=== PATIENT | female | born 1990 | race Caucasian/White ===

== ENCOUNTER 2019-11-10 13:19 | Outpatient (CLI) | payer SELFPAY ==
--- NOTE | 2019-11-10 13:32 | XR_ITS ---
WS: [id number] CHEST 2 VIEWS HISTORY: FEVER, symptoms, WHEEZING, COUGH COMPARISON: 01/23/2015 Lungs: Clear with no abnormality. No pleural effusion or pneumothorax. Cardiac size: Normal. Mediastinum/Aorta: Normal mediastinum. Bones: Normal. XR/XR chest 2V* [id number] IMPRESSION: Normal chest.
== END 2019-11-10 13:20 | disposition home or self-care (01) ==
LOC: RADWPI 13:22
PROVIDERS: Family Provider Family Medicine; PCP Nurse Practitioner Family; Visit Provider Nurse Practitioner Family
DX: R50.9 Fever, unspecified (principal); R06.2 Wheezing; R05 Cough
CPT/HCPCS: 71046

== ENCOUNTER 2021-01-15 12:00 | Inpatient (IN) | payer MEDICAID, SELFPAY ==
[2021-01-15] VITALS (27 sets, daily range): BP systolic 104–128; BP diastolic 42–73; PULSE 66–133; RESP 14–18; TEMP 36.5–36.7; O2SAT 94–100; BMI 21.9
--- NOTE | 2021-01-15 12:07 | USR_ITS ---
PROCEDURE INFORMATION: Exam: US , Limited Exam date and time: 01/15/2021 12:30 PM Age: 30 years old Clinical indication: complicated by abdominal or pelvic pain; Generalized abdominal pain; Third trimester; Gestational age or lmp: Lmp 05-18-2020; ; Additional info: Dating TECHNIQUE: Imaging protocol: Real-time ultrasound of the maternal uterus with image documentation. Exam focused on the clinical indication. COMPARISON: US OB >14 Weeks [id number] 12/29/2018 11:10 AM FINDINGS: Gestation: Single live intrauterine presentation: Breech presentation. heart rate: 129 bpm Placenta: Placenta is anterior and left lateral. No previa. Amniotic fluid: Amniotic fluid is grossly normal. BIOMETRY: Gestational age (AUA): 34 week 1 day Estimated due date (AUA): 02/25/2021 Estimated weight: 2111 g Estimated weight percentile: 31 Biparietal diameter: 8.61 cm 34 week 5 day Head circumference: 32.21 cm 36 week 3 day Abdominal circumference: 28.03 cm 32 weeks 1 day Femur length: 6.43 cm 33 week 1 day US/US OB >= 14 weeks fetus [id number] IMPRESSION: Single live intrauterine approximately 34 weeks 1 day gestational age.
[2021-01-15] MEDS: terbutaline 1 mg/mL INJ 0.25 MG SUBCUT (12:29)
[2021-01-15 12:33] LABS: Basophils % 0.2 %; Eosinophils # 0.1 10^3/uL (0.0-0.8); Eosinophils % 0.5 %; Hematocrit 39.6 % (37.0-47.0); Hemoglobin 13.5 g/dL (11.5-15.3); Lymphocytes # 1.6 10^3/uL (0.8-4.8); Lymphocytes % 12.3 %; Mean Corpuscular HGB Conc 34.1 g/dL (30.0-36.0); Mean Corpuscular Hemoglobin 31.4 pg (28.0-34.0); Mean Corpuscular Volume 92.1 fL (81-99); Mean Platelet Volume 10.8 fL (7.4-10.4); Monocytes # 0.8 10^3/uL (0.2-0.9); Neutrophils # 10.22 10^3/uL (1.8-7.7); Neutrophils % 80.4 %; Nucleated Red Blood Cells % 0 %; Platelet Count 162 10^3/cmm (130-400); Red Cell Distribution Width 12.5 % (12.1-15.1); White Blood Count 12.7 10^3/uL (4.0-10.0)
--- NOTE | 2021-01-15 12:42 | P.HP_ITS ---
Providers/Chief Complaint Admitting Physician: Isaac Louis MD Primary Care Provider: Sigrid Ontiveros Chief Complaint: Abdominal pain History of Present Illness Breann You is a 30 year old female who is a 4 para 1 at approximately 34 weeks gestation by dates. This is not been verified by ultrasound. She began care with this physician in approximately 31 weeks gestation by dates. Ultrasound verification has not been done as patient has not been able to verify that she is gotten Medicaid. We have also not done any labs on her. This physician has seen her 2x1 at 31 weeks and 1 at 32 weeks and 6 days. She denies any major problems through her but began having abdominal pain and contractions beginning this morning. She arrived [facility] OB department and was roxanne and found to be approximately 3 cm dilated. She is roxanne pretty regularly and is uncomfortable with them. Evaluation by the nurses found her to be 3 cm dilated with probably an extremity as a presenting part. A quick ultrasound demonstrated the was indeed breech in position. She is now been rechecked by Dr. Mayorga who found her to be approximately 4 segmenters dilated. Therefore, due to malpresentation she is going to be taken to section. There are no other risk factors except she is a smoker. Review of Systems Narrative: This patient denies any nausea vomiting diarrhea or constipation. She is afebrile. She began having strong contractions earlier this morning and that brought her to the hospital for evaluation. She denies any other significant problems or concerns. PFSH Acute Female Reproductive History: : 4 Vitals/I&O/Wt Last Vital Signs Temp 98.1 F 01/15/21 11:53 Pulse 88 01/15/21 11:54 Resp 18 01/15/21 12:08 BP 122/73 01/15/21 11:54 Weight last 48 hrs Weight 63.503 kg Physical Exam Const: COMMON NORMALS: healthy appearing, alert and well nourished (She is thin.); apparent distress (She is uncomfortable with contractions.) HENMT: COMMON NORMALS: moist oral mucous membranes Resp: COMMON NORMALS: normal respiratory effort, No retractions, No use of accessory muscles and clear to auscultation bilaterally Cardio: COMMON NORMALS: regular rhythm and No murmurs present (Cardio) GI: COMMON NORMALS: Normal to inspection, nondistended, normoactive bowel sounds present (She has a gravid uterus.) and Soft to palpation Extremity: COMMON NORMALS: normal to inspection, full ROM, no calf tenderness and no pedal edema Neuro: COMMON NORMALS: moves all extremities, no focal motor deficits and no sensory deficits noted Psych: COMMON NORMALS: mental status grossly normal, Normal thought process present, cooperative and normal affect Data : 01/15/21 12:15 A&P Assessment and plan (1) labor in third trimester: Patient is unsure as to how far along she is. She has had minimal care and begin care with this physician on December 21 with possible 31 weeks gestation at that time. She is presently in labor. We are getting the labs and ultrasound as quickly as we can as she is going to require section secondary to breech position. Status: Acute (2) Breech presentation of fetus: Patient is in breech position and in active labor as she is making cervical change. Dr. Mayorga has been consulted and will proceed with section. Status: Acute Attestations Medical Necessity Statement*: This patient is an active labor and requires admission to the hospital with section secondary to malpresentation of the . Time Spent in Patient Care: 16 - 35 minutes Coding Level of Care Code Acute Tire Cord Weaver for Chg Fwd Diagnoses labor in third trimester O60.03 Breech presentation of fetus O32.1XX0
[2021-01-15 12:43] LABS: Amphetamines Screen Urine Negative (Negative); Barbiturates Screen Urine Negative (Negative); Benzodiazepines Screen Urine Negative (Negative); Cocaine Screen Urine Negative (Negative); Opiate Screen Urine Negative (Negative); PCP Screen Urine Negative (Negative); THC Screen Urine Positive (Negative)
[2021-01-15] MEDS: famotidine 20 mg/2 mL INJ IVP (12:43)
[2021-01-15] MEDS: metoclopramide 5 mg/mL SDV 2 mL 10 MG IVP (12:43)
[2021-01-15] MEDS: citric acid-sodium citrate 30 mL UDC PO (12:44)
--- NOTE | 2021-01-15 13:00 | ANES.PREANE2 ---
Pre-Anesthetic Assessment Pre-Anesthetic Assessment: Height/Weight: Height 1.7 m Weight 63.503 kg Temp Pulse Resp BP 98.1 F 108 H 18 118/67 01/15/21 11:53 01/15/21 12:57 01/15/21 12:08 01/15/21 12:57 Preop Diagnosis: breech Proposed Procedure: Familial anesthetic complications: none Was Beta Belia taken within 24 hours: N/A Was Clonidine taken within 24 hours: N/A Social: Social History: Tobacco Packs per day: 0.5 Pack years: 15 Exam: Pre-Anes Outpt Exam: alert, oriented x 3, clear to auscultation bilaterally and regular rate & rhythm Airway: Submandibular: WNL Cervical ROM: WNL MP: 2 Dentition: Full Pulmonary: Pulmonary: None reported CV/HEM: CV/HEM: None reported : : None reported Hepatic: Hepatic: None reported GI: GI: GERD (OTC controls it) Metabolic: Metabolic: None reported Musc/skel: Musc/skel: None reported Neuropsych: Neuropsych: None reported Anesthetic Plan: ASA status: 2 Anesthesia: General and Regional (specify below) Risk of > 500 ml blood loss (7ml/kg in children): No PFSH Anesthesia Female Reproductive History: : 4 Data Anesthesia CBC & Chem 7: 01/15/21 12:15 Other Labs: Laboratory Results - last 48 hr 01/15/21 01/15/21 11:45 12:15 WBC 12.7 H RBC 4.30 Hgb 13.5 Hct 39.6 MCV 92.1 MCH 31.4 MCHC 34.1 RDW 12.5 Plt Count 162 MPV 10.8 H Neut % (Auto) 80.4 Lymph % (Auto) 12.3 [place] % (Auto) 6.0 Eos % (Auto) 0.5 Baso % (Auto) 0.2 Neut # (Auto) 10.22 H Lymph # (Auto) 1.6 [place] # (Auto) 0.8 Eos # (Auto) 0.1 Baso # (Auto) 0.0 Nucleated RBC % (auto) 0 Nucleated RBCs # 0.0 Urine Opiates Screen Negative Ur Barbiturates Screen Negative Ur Phencyclidine Scrn Negative Ur Amphetamines Screen Negative U Benzodiazepines Scrn Negative Urine Cocaine Screen Negative U Marijuana (THC) Screen Positive H Cardiac Studies: No Data to Display
[2021-01-15 13:04] LABS: Hepatitis B Surface Antigen Non-Reactive (Nonreactive)
[2021-01-15 13:13] LABS: Rapid Plasma Reagin Syphilis Nonreactive (Nonreactive)
[2021-01-15 13:14] LABS: HIV 1 & 2 Antibody Non-Reactive (Non-Reactiv); HIV 1 & 2 Antigen Non-Reactive (Non-Reactiv)
--- NOTE | 2021-01-15 14:00 | P.OP_ITS ---
Operative Report Date of procedure: January 15, 2021 Pre-op Diagnosis: 2, EGA of 34 weeks, breech Post-op diagnosis: same (Sam breech) Procedure Done: Lower transverse section Specimens removed/disposition: 1. Female with a weight of 4 pounds 12 ounces and Apgars of 8 and 9 Pathology: none sent Surgeon: Pako Mayorga Pediatric Social Worker: Isaac Louis Anesthesia: Epidural (Spinal) Estimated blood loss (mL): 1,000 Complications: None Condition: stable Disposition: floor (OB) Brief History: Refer to history and physical Procedure: The patient was brought back to the operating room where she was prepped and draped in usual sterile fashion. Anesthesia was found to be adequate. A lower transverse skin incision was then made with a #10 blade. I then dissected down to the underlying subcutaneous tissue until arriving at the prerectal fascia. The fascia was then nicked with the scalpel bilaterally. The fascial incisions were then carried laterally with García scissors. Attention was then turned to the superior aspect of the incision which was grasped with kochers and tented up away from the underlying rectus abdominis muscles. The muscles were then dissected away from the fascia manually, and later with García scissors. Attention was then turned to the inferior aspect of the incision, and the fascia was dissected away from the underlying muscle in similar fashion. The rectus abdominis muscles were then spread manually. The peritoneum was entered manually. Excellent visualization of the uterus was noted. A lower transverse uterine incision was then made with a #10 blade. Upon arriving at the intrauterine cavity, the uterine incision was then extended manually. The was noted to be in vertex position. The baby was delivered without difficulty. After delivery of the head, the mouth and nose were suctioned shortly after delivery. There was no meconium. There was no nuchal cord. The cord was cut and clamped. The baby was then handed to the waiting nurse. The placenta was removed intact. The uterus was externalized. The intrauterine cavity was cleansed of any remaining debris. The uterine incision was reapproximated in 2 layers. The first layer was performed with 0 Vicryl in a running locked stitch. The second layer was an imbricating stitch also using 0 Vicryl. The uterus was replaced into the abdomen. The peritoneum was then irrigated with warm saline. I reexamined the uterine incision and found it to be hemostatic. The rectus abdominis muscles were then reapproximated using 0 Vicryl in a running stitch. The fascia was then reapproximated using 0 Vicryl in running stitch. The skin was reappro ximated using julio. A sterile dressing was placed. All counts were correct x2. Both the mother and baby were in stable condition.
--- NOTE | 2021-01-15 14:08 | P.PCN_ITS ---
PACU note PACU note: VSS, Good respiratory effort, report to INTERN PRODUCT MARKETING MANAGER Post-Anesthesia Exam: awake
--- NOTE | 2021-01-15 14:08 | PM.PACU ---
PACU note PACU note: VSS, Good respiratory effort, report to GAS MASK INSPECTOR Post-Anesthesia Exam: awake
[2021-01-15] MEDS: sodium chloride 0.9% 1,000 ML 999 ML IV ×2 (16:33→23:35)
[2021-01-15] MEDS: dextrose 5%-lactated ringers 1,000 ML 125 ML IV (17:36)
[2021-01-15] MEDS: ondansetron 2 mg/ML SDV 2 mL 4 MG IVP ×2 (17:50→21:40)
[2021-01-15] MEDS: morphine 4 mg/mL SDV 1 mL 5 MG IVP (18:15)
--- NOTE | 2021-01-15 18:33 | PC.NURSE ---
Pt only had 2 care visits, starting at 31 weeks and UDS positive for THC at delivery
[2021-01-15] MEDS: ketorolac 30 mg/mL INJ IVP (20:52)
[2021-01-15] MEDS: promethazine 25 mg Tablet PO (23:34)
[2021-01-16] VITALS (7 sets, daily range): BP systolic 92–103; BP diastolic 55–64; PULSE 72–80; RESP 15–18; TEMP 36.6–36.9; O2SAT 95–98
[2021-01-16 02:57] LABS: Hematocrit 31.9 % (37.0-47.0); Hemoglobin 10.5 g/dL (11.5-15.3); Mean Corpuscular HGB Conc 32.9 g/dL (30.0-36.0); Mean Corpuscular Hemoglobin 31.3 pg (28.0-34.0); Mean Corpuscular Volume 95.2 fL (81-99); Mean Platelet Volume 11.1 fL (7.4-10.4); Platelet Count 141 10^3/cmm (130-400); Red Blood Count 3.35 10^6/uL (4.1-5.3); Red Cell Distribution Width 12.8 % (12.1-15.1); White Blood Count 17.6 10^3/uL (4.0-10.0)
[2021-01-16] MEDS: ketorolac 30 mg/mL INJ IVP (02:58)
[2021-01-16] MEDS: dextrose 5%-lactated ringers 1,000 ML 125 ML IV (03:50)
[2021-01-16] MEDS: prenatal vitamin Capsule 1 CAP PO (07:57)
--- NOTE | 2021-01-16 08:29 | PM.OBGYPN ---
CONCRETE WORKER Subjective Labor: Station: -3 Vitals/I&O/Wt Last Vital Signs Temp 97.8 F 01/16/21 08:00 Pulse 78 01/16/21 08:00 Resp 15 01/16/21 08:00 BP 94/57 01/16/21 08:00 Pulse Ox 98 01/16/21 08:00 01/15/21 01/16/21 01/16/21 22:59 06:59 14:59 Intake Total 2550 / 2550 747.917 / 3297.917 Output Total 1000 / 1000 615 / 1615 300 / 300 Balance 1550 / 1550 132.917 / 1682.917 -300 / -300 Weight last 48 hrs Weight 140 lb Physical Exam Narrative: EXAM NARRATIVE: She is in no acute distress Lungs are clear auscultation bilaterally Her heart has a regular rate and rhythm Her fundus is below the umbilicus and firm Her dressing is clean, dry and intact Her extremities have trace edema Urinary Catheter Management^: Kelly: Cath Placed During This Visit: yes Reason for Continuing Indwelling Catheter: Perioperative Use in Selected Surgeries Urinary Catheter Date of Insertion: 01/15/21 Urinary Catheter Time of Insertion: 13:18 Data : 01/16/21 02:30 A&P Assessment and plan (1) Breech presentation of fetus: Status: Acute (2) labor in third trimester: Status: Acute (3) Status post : I anticipate routine post care. The patient has done well to this point. She has passed gas. Her pain is well controlled. Her bleeding has been minimal. Status: Acute Attestations Medical Necessity Statement*: I anticipate the patient will be discharged home tomorrow if she continues to do well. Coding Level of Care Code Acute Ticket Scheduler for Chg Fwd Diagnoses Breech presentation of fetus O32.1XX0 labor in third trimester O60.03 Status post Z98.891
[2021-01-16] MEDS: docusate sodium 100 mg Capsule PO ×2 (09:26→17:15)
[2021-01-16] MEDS: oxyCODONE-APAP 5-325 mg Tablet PO ×2 (09:26→17:18)
[2021-01-16] MEDS: ibuprofen 800 mg tablet PO ×2 (11:06→18:48)
[2021-01-17] MEDS: ibuprofen 800 mg tablet PO ×2 (02:59→10:08)
[2021-01-17 03:05] VITALS: BP 119/64; PULSE 64; RESP 16; TEMP 36.6
--- NOTE | 2021-01-17 06:37 | PM.OBGYDC ---
Discharge Providers INGREDIENT SPECIALIST Date of Admission: 01/15/21 12:00 Date of Discharge: 01/26/21 Attending Provider at Admission: Isaac Louis MD Attending Provider at Discharge: Isaac Louis MD Primary Care Provider: Sigrid Ontiveros Diagnoses at Discharge Discharge Diagnosis (1) Breech presentation of fetus: Status: Resolved (2) labor in third trimester: Status: Resolved (3) Status post : Status: Resolved Reason for Visit Reason for Visit: Abdominal pain Information Peripartum Data: Delivery Method: Physical Exam Narrative: EXAM NARRATIVE: She is in no acute distress Lungs are clear auscultation bilaterally Her heart has a regular rate and rhythm Her fundus is below the umbilicus and firm Her dressing is clean, dry and intact Her extremities have trace edema Urinary Catheter Management^: Kelly: Cath Placed During This Visit: yes, but has since been removed by the nurse Reason for Continuing Indwelling Catheter: Decision to DC Catheter Urinary Catheter Date of Insertion: 01/15/21 Urinary Catheter Time of Insertion: 13:18 Date Urinary Catheter Removed: 01/16/21 Time Urinary Catheter Discontinued: 09:16 Discharge Data Data Completed and Pending: Completed Studies During Hospitalization Category Date Time Status US OB >= 14 weeks fetus [id number] Stat Ultrasound 01/15/21 12:07 Completed Vitals: Last Vital Signs Temp 97.8 F 01/17/21 03:05 Pulse 64 01/17/21 03:05 Resp 16 01/17/21 03:05 BP 119/64 01/17/21 03:05 Pulse Ox 97 01/16/21 22:05 Discharge Plan Discharge Patient Disposition: Home Condition: Stable Prescriptions: New ibuprofen 800 mg Tablet 800 mg PO Q8H Qty: 45 RF: 0 oxycodone-acetaminophen 5-325 mg Tablet 1 - 2 tab PO Q6H PRN (Reason: Moderate To Severe Pain) Qty: 20 RF: 0 -U 106.5-1 mg Capsule 1 cap PO BREAKFAST Qty: 90 RF: 0 Discharge Orders: Discharge Order (Routine); Ordered 01/17/21 Ordered By: Pako Mayorga Referrals: Isaac Louis MD [Physician] - 02/28/21 3:30 pm (* Your 6 week appointment is with Dr. Louis on 02/28/2021 at 3:30pm) Pako Mayorga MD [Physician] - 01/19/21 9:15 am (* Your incision check is with Dr. Mayorga on 01/19/2021 at 9:15am) Discharge Diet: Usual diet Discharge Activity: Limit activity as instructed Patient Instructions: Depression (GEN), Pre-eclampsia and Eclampsia (DC), Bleeding (DC), OB - Mukesh/Loida, OB Discharge Report, OB Food/Drug Interaction Guide, Opioid Safety, OB Proud Parent Packet, Abnormal Bleeding Discharge Attestations INGREDIENT SPECIALIST Time Spent in Discharge Care*: less than 30 min Specific Discharge Activities: Specific discharge activities: educating patient Coding Level of Care Code Acute Fur Trimming Machine Operator for Chg Fwd Diagnoses Breech presentation of fetus O32.1XX0 labor in third trimester O60.03 Status post Z98.891
--- NOTE | 2021-01-17 08:50 | PC.NURSE ---
[facility]ath[facility] Tim[facility] in pt room.
[2021-01-17 10:07] VITALS: RESP 18
[2021-01-17] MEDS: docusate sodium 100 mg Capsule PO (10:07)
[2021-01-17] MEDS: oxyCODONE-APAP 5-325 mg Tablet PO ×2 (10:07→15:27)
[2021-01-17] MEDS: prenatal vitamin Capsule 1 CAP PO (10:08)
[2021-01-17 15:27] VITALS: RESP 17
[2021-01-17 16:10] VITALS: BP 104/66; PULSE 81; RESP 18; TEMP 36.6; O2SAT 99
== END 2021-01-17 16:15 | disposition home or self-care (01) | DRG 788 ==
LOC: OPOB 12:24 → OBGYN 12:24
PROVIDERS: Family Medicine; Admitting Provider Family Medicine; PCP Nurse Practitioner Family; Visit Provider Family Medicine
PROC: 10D00Z1 Extraction of Products of Conception, Low, Open Approach (ICD-10-PCS; CPT 59514; principal; 2021-01-15 13:00)
DX: O60.14X0 Preterm labor third trimester with preterm delivery third trimester, not applicable or unspecified (principal); O99.334 Smoking (tobacco) complicating childbirth; O32.1XX0 Maternal care for breech presentation, not applicable or unspecified; Z3A.34 34 weeks gestation of pregnancy; Z37.0 Single live birth; O75.89 Other specified complications of labor and delivery; K21.9 Gastro-esophageal reflux disease without esophagitis
CPT/HCPCS: 12345; 36415; 51702; 59025; 59409; 76805; 80306; 85025; 85027; 86592; 86762; 86850; 86900; 87340; 87491; 87591; 87806; 96372; 96374; 96375; 99211; J0690; J1885; J2270; J2274; J2405; J2765; J3010; J3105; J3490; J7030; Q0169

== ENCOUNTER 2021-05-15 11:11 | Emergency (ER) | payer MEDICAID, SELFPAY ==
--- NOTE | 2021-05-15 12:03 | XR_ITS ---
WS: [id number] PORTABLE CHEST HISTORY: cough and SOB COMPARISON: 11/10/2019 Lungs are clear and well expanded. No pleural effusion or pneumothorax. Cardiac size: Normal. Mediastinum/Aorta: Normal mediastinum. No osseous abnormality seen. XR/XR chest 1V portable [id number] IMPRESSION: Unremarkable portable chest.
[2021-05-15 12:10] VITALS: BP 114/83; PULSE 111; RESP 18; TEMP 36.4; O2SAT 94; BMI 20.3
--- NOTE | 2021-05-15 16:04 | ED_ITS ---
HPI - URI/Sore Throat General: Chief Complaint: Upper Respiratory Infection Stated Complaint: TROUBLE BREATHING/FEVER/COUGH/N,V Time Seen by Provider: 05/15/21 15:39 History of Present Illness: HPI Narrative: Patient is a 30-year-old female comes to the ED with a cough and nasal drainage and congestion. Symptoms started 2 days ago. Patient's cough is mostly nonproductive. She also endorses a sore throat. Denies any fever, chills, shortness of breath, abdominal pain nausea or vomiting. Associated symptoms: Reports nasal congestion; Deny abdominal pain, chills, chest pain, diarrhea, ear or mastoid pain, fever(s), headache(s), nausea or vomiting Review of Systems Const: Denies: fever(s), chills or fatigue Eyes: Denies: change in vision or eye discomfort ENMT: Reports: throat pain, nasal discharge and nasal congestion; Denies: odynophagia or ear or mastoid pain Card: Denies: chest pain, palpitations, edema, swelling of feet/ankles, dyspnea on exertion or orthopnea Resp: Reports: non-productive cough; Denies: dyspnea or productive cough GI: Denies: abdominal pain, nausea, vomiting, diarrhea, constipation or hematochezia : Denies: flank pain, dysuria or hematuria Musc: Denies: neck pain, back pain or extremity swelling Skin/Breast: Denies: rash or new lesions Neuro: Denies: headache(s), numbness in extremities or weakness in extremities Physical Exam Const: COMMON NORMALS: no acute distress, patient oriented x3, healthy appearing and alert GENERAL APPEARANCE: cooperative and comfortable HENMT: COMMON NORMALS: normocephalic HEAD & SCALP: normocephalic MOUTH: Normal oral and palatal mucosa present THROAT: posterior oropharynx normal and uvula midline Eye: COMMON NORMALS: Equal, round and reactive pupils present PUPIL: Yes Equal, round and reactive pupils present Neck/C-Spine: COMMON NORMALS: supple GENERAL: Yes normal visual inspection Resp: COMMON NORMALS: normal respiratory effort, No retractions, No use of accessory muscles and clear to auscultation bilaterally EFFORT & INSPECTION: Yes able to speak in complete sentences, No tachypneic, No respiratory distress and No labored AUSCULTATION: clear to auscultation bilaterally Cardio: COMMON NORMALS: regular rate, regular rhythm, S1 normal heart sound present, S2 normal heart sound present, No gallops present (Cardio), No clicks present (Cardio), No murmurs present (Cardio) and Peripheral pulses 2+ throughout RATE: regular rate RHYTHM: regular rhythm HEART SOUNDS: S1 normal heart sound present and S2 normal heart sound present PERIPHERAL PULSES: Peripheral pulses 2+ throughout GI: COMMON NORMALS: Normal to inspection, nondistended, normoactive bowel sounds present, Soft to palpation, non-tender and no masses PALPATION: Yes Soft to palpation : COMMON NORMALS: Yes no CVA tenderness BLADDER/KIDNEY EXAM: Yes no CVA tenderness Back/Pelvis: COMMON NORMALS: no CVA tenderness Extremity: COMMON NORMALS: normal to inspection Neuro: COMMON NORMALS: patient oriented x3 and moves all extremities SENSORIUM/ORIENTATION: Yes alert Skin: COMMON NORMALS: no rashes or lesions noted GENERAL SKIN EXAM: no rashes or lesions noted Course Vital Signs: Vital signs: Vital Signs Temperature 98.1 F 05/15/21 16:30 Pulse Rate 110 H 05/15/21 16:30 Respiratory Rate 18 05/15/21 12:10 Blood Pressure 115/76 05/15/21 16:30 Pulse Oximetry 94 05/15/21 16:30 MDM - URI/Sore Throat MDM Narrative: Medical decision making narrative: Patient is a healthy appearing 30-year-old female comes to the ED with upper respiratory symptoms. She is in no acute distress or pain her lungs are clear to auscultation bilaterally. Vitals are stable and she is afebrile. Chest x-ray showed no acute findings. Rapid strep test and Covid test were both negative. Patient diagnosed with a viral upper respiratory infection and discharged home. She was instructed on symptomatic treatment and did take [id number] Tylenol or ibuprofen for any fevers. Drink plenty of fluids and stay hydrated. Return to ED precautions given. Follow-up with PCP in 7 to 10 days for reevaluation. Lab Data: Attestation: I reviewed the patient's lab results. Labs: Lab Results 05/15/21 05/15/21 17:08 17:08 SARS-CoV-2 Ag (Rap id) Negative (Negative) Group A Strep Rapi d Negative (Negative) Imaging Data^: CXR: Attestation: I personally reviewed and interpreted this imaging study as follows: Radiologist's impression: [address] [place] [address] XRay Report Signed Patient: Breann You Unit #: [id number] : 1990 Age/Sex: 30 / F ADM Date: 05/15/21 Loc: ER Room/Bed: Attending Dr: Ordering Provider/Ordering MD: Bar Akhtar Date of Service: 05/15/21 Procedure(s): XR chest 1V portable [id number] Accession Number(s): [id number] Report Number: [id number] WS: [id number] PORTABLE CHEST HISTORY: cough and SOB COMPARISON: 11/10/2019 Lungs are clear and well expanded. No pleural effusion or pneumothorax. Cardiac size: Normal. Mediastinum/Aorta: Normal mediastinum. No osseous abnormality seen. XR/XR chest 1V portable [id number] IMPRESSION: Unremarkable portable chest. Dictated By: Kathy Granger DO Signed By: Kathy Granger DO Signed Date/Time: 05/15/21 1232 DD/ 1231 Discharge Plan Discharge Patient Disposition: Home Clinical Impression: Upper respiratory infection, viral Condition: Stable Prescriptions: No Action ibuprofen 800 mg Tablet 800 mg PO Q8H Qty: 45 RF: 0 oxycodone-acetaminophen 5-325 mg Tablet 1 - 2 tab PO Q6H PRN (Reason: Moderate To Severe Pain) Qty: 20 RF: 0 -U 106.5-1 mg Capsule 1 cap PO BREAKFAST Qty: 90 RF: 0 Discharge Orders: Discharge ED (Routine); Ordered 05/15/21 Ordered By: Bar Akhtar Referrals: Sigrid Ontiveros FNP [Primary Care Provider] - Discharge Diet: Regular Discharge Activity: Resume usual activity Patient Instructions: Viral Syndrome (ED), Upper Respiratory Infection - Adult Activity Restrictions/Additional Instructions: Follow up with PCP in 7-10 days for reevaluation. Take medications as prescribed. Drink plenty of fluids. Take OTC tylenol or motrin for fevers. Return to ED if worsening symptoms. Coding Level of Care Code ED Executive Associate for Chg Fwd Exam Comprehensive
[2021-05-15 16:30] VITALS: BP 115/76; PULSE 110; TEMP 36.7; O2SAT 94
[2021-05-15 17:31] LABS: Rapid Strep A Test Negative (Negative)
[2021-05-15 17:51] LABS: SARS Covid-2 Antigen Negative (Negative)
== END 2021-05-15 18:10 | disposition home or self-care (01) ==
PROVIDERS: Emergency Provider Physician Assistant; PCP Nurse Practitioner Family
DX: J06.9 Acute upper respiratory infection, unspecified (principal); Z20.822 Contact with and (suspected) exposure to COVID-19
CPT/HCPCS: 71045; 87081; 87426; 87880; 99281

== ENCOUNTER → 2023-11-07 18:34 | Outpatient (BNVA) | payer MEDICAID, SELFPAY | PROVIDERS: PCP Nurse Practitioner Family; Visit Provider Physician Assistant | DX: R09.81 Nasal congestion (principal) | CPT/HCPCS: 87400 ==